=== PATIENT | female | born 1995 | race Caucasian/White ===

== ENCOUNTER 2022-04-11 16:52 | Emergency (ER) | payer OTHER | END 2022-04-11 20:25 | disposition home or self-care (01) | LOC: FER 16:52 | DX: O9A.212 Injury, poisoning and certain other consequences of external causes complicating pregnancy, second trimester (principal); O99.712 Diseases of the skin and subcutaneous tissue complicating pregnancy, second trimester; S80.01XA Contusion of right knee, initial encounter; L55.9 Sunburn, unspecified; Z3A.21 21 weeks gestation of pregnancy; W19.XXXA Unspecified fall, initial encounter; Y92.830 Public park as the place of occurrence of the external cause | CPT/HCPCS: 73560 ==

== ENCOUNTER 2022-05-27 09:46 | Emergency (ER) | payer OTHER ==
[2022-05-27 11:09] LABS: BILIRUBIN NEGATIVE (NEGATIVE); BLOOD NEGATIVE Ery/uL (NEGATIVE); CLARITY CLEAR (CLEAR); COLOR YELLOW (YELLOW); GLUCOSE (U) NORMAL (NORMAL); LEUKOCYTES NEGATIVE Leu/uL (NEGATIVE); NITRITE NEGATIVE (NEGATIVE); PROTEIN NEGATIVE (NEGATIVE)
[2022-05-27 11:12] LABS: BASOPHIL 0.6 % (0-2); EOSINOPHIL 0.8 % (0-5); HCT 31.6 % (37.0-47.0); HGB 10.7 g/dl (12.5-16.0); LYMPHOCYTE 18.8 % (15-48); MCH 30.8 pg (25.0-31.0); MCHC 33.9 g/dL (32.0-36.0); MCV 91.1 fL (78.0-100.0); MONOCYTE 7.7 % (0-12); MPV 10.5 fL (6.0-9.5); NEUTROPHIL 70.3 % (41-80); NRBC 0; PLT 190 K/uL (150-400); RBC 3.47 M/uL (4.20-5.40); RDW 13.2 % (11.5-14.0); WBC 8.3 K/uL (4.0-10.5)
[2022-05-27 11:48] LABS: ALBUMIN 2.7 g/dL (3.4-5.0); BILIRUBIN - TOTAL 0.1 mg/dL (0.2-1.0); BUN/CREAT RATIO (CALC) 14.9 RATIO; CREATININE 0.47 mg/dL (0.51-0.95); GLOBULIN (CALCULATION) 3.5 g/dL; TOTAL PROTEIN 6.2 g/dL (6.4-8.2)
== END 2022-05-27 13:07 | disposition home or self-care (01) ==
LOC: FER 09:46
PROVIDERS: Emergency Medicine
DX: O98.512 Other viral diseases complicating pregnancy, second trimester (principal); O99.282 Endocrine, nutritional and metabolic diseases complicating pregnancy, second trimester; O99.891 Other specified diseases and conditions complicating pregnancy; O99.512 Diseases of the respiratory system complicating pregnancy, second trimester; B34.9 Viral infection, unspecified; E87.6 Hypokalemia; R01.1 Cardiac murmur, unspecified; J45.909 Unspecified asthma, uncomplicated; Z3A.27 27 weeks gestation of pregnancy; Z20.822 Contact with and (suspected) exposure to COVID-19; Z28.310 Unvaccinated for COVID-19; Z88.8 Allergy status to other drugs, medicaments and biological substances
CPT/HCPCS: 36415; 80053; 81003; 84484; 85025; 85379; 93005; J7030; J7512; U0002